=== PATIENT | female | born 1980 | race Caucasian/White ===

== ENCOUNTER 2016-09-19 18:58 | Emergency (ER) | payer SELFPAY ==
[~2016-09-19] VITALS: Ht 175.3 cm; Wt 103.4 kg
[~2016-09-19 18:58] MED LIST: AMOXICILLIN875 MG PO; BACTRIM,SEPT1 TABLET PO; CLEOCIN300 MG PO; HYCODAN SYRUP480 ML PO; KEFLEX500 MG PO; MOTRIN600 MG PO; Motrin PO; NAPROSYN500 MG PO; NORCO 5/3251 TABLET PO; PERCOCET 5/31 TABLET PO; TYLENOL EXTRA500 MG PO; ULTRAM50 MG PO; WOMEN'S ONE DA1 EACH PO
[2016-09-19] MEDS ORDERED: BACTRIM,SEPT1 TABLET PO (19:43)
[2016-09-19] MEDS ORDERED: PERCOCET 5/31 TABLET PO (19:43)
[2016-09-19 20:49] VITALS: BP 148/80
== END 2016-09-19 20:49 | disposition home or self-care (01) ==
LOC: EME 18:58
PROC: 0H98XZZ Drainage of Buttock Skin, External Approach (ICD-10-PCS; principal; 2016-09-19)
DX: L05.91 Pilonidal cyst without abscess (principal)
CPT/HCPCS: 99281; 99284

== ENCOUNTER → 2017-09-26 | Outpatient (CLI) | payer SELFPAY | END | disposition home or self-care (01) | LOC: RAD 09-13 14:00 | DX: N92.0 Excessive and frequent menstruation with regular cycle (principal) | CPT/HCPCS: 76856 ==

== ENCOUNTER 2017-10-06 16:38 | Emergency (ER) | payer SELFPAY ==
[~2017-10-06] VITALS: Ht 177.8 cm; Wt 101.7 kg
[2017-10-06] MEDS ORDERED: BACTRIM,SEPT1 TABLET PO (18:45)
[2017-10-06 19:04] VITALS: BP 121/75
== END 2017-10-06 19:05 | disposition home or self-care (01) ==
LOC: EME 16:38
PROC: 0H98XZZ Drainage of Buttock Skin, External Approach (ICD-10-PCS; principal; 2017-10-06)
DX: L05.01 Pilonidal cyst with abscess (principal); Z87.891 Personal history of nicotine dependence; Z88.5 Allergy status to narcotic agent
CPT/HCPCS: 99281; 99284